=== PATIENT | female | born 1985 | race African-American/Black ===

== ENCOUNTER → 2019-11-05 | Outpatient (CLI) | payer SELFPAY ==
--- NOTE | 2019-11-05 18:51 | RAD ---
Examination: LUMBAR SPINE MIN 4V History: Low back pain Comparison/Correlation: None Findings: Total of 5 images of the lumbar spine were obtained. Alignment is normal. Vertebral body heights are adequate. No fracture or bone destruction. Significant L5-S1 disc space narrowing is present but no endplate sclerosis, spurring or other associated findings. This may be developmental. Sacroiliac joints are symmetric. Impression: Narrowed L5-S1 disc space is present but may be developmental. No acute process. Electronically signed by: James Valerio MD (11/05/2019 6:48 PM) [id number]
== END | disposition home or self-care (01) ==
LOC: DXRAD 11:39
PROVIDERS: ATTEND Physician Assistant Medical
DX: M48.07 Spinal stenosis, lumbosacral region (principal)
CPT/HCPCS: 72110